=== PATIENT | male | born 1955 | race Caucasian/White ===

== ENCOUNTER 2017-03-09 21:33 | Inpatient (IN) ==
[2017-03-09] MEDS ORDERED: ONDANSETRON 4 MG/2 ML VIAL IV STA (21:52)
[2017-03-09] MEDS ORDERED: HYDROmorphone 2 MG/1 ML VIAL IV STA (21:52)
[2017-03-09] MEDS ORDERED: HYDROmorphone 2 MG/1 ML VIAL ONE (22:05)
[2017-03-09] MEDS ORDERED: ONDANSETRON 4 MG/2 ML VIAL ONE (22:05)
[2017-03-09] MEDS ORDERED: ONDANSETRON 4 MG/2 ML VIAL IV PRN (22:43)
[2017-03-09 22:59] LABS: Basophils # 0.1 10*3/uL (0.0-0.2); Basophils % 0.4 % (0.0-0.8); Eosinophils # 0.1 10*3/uL (0.0-0.87); Eosinophils % 0.7 % (0.00-10.9); Hematocrit 54.6 VOL% (42.0-52.0); Immature Granulocytes % 0.5 %; Immature Granulocytes Absolute 0.07 #; Lymphocytes # 1.9 10*3/uL (1.4-4.0); Lymphocytes % 14.2 % (21.2-54.2); Mean Corpuscular HGB Conc 34.8 GM/DL (32-36); Mean Corpuscular Hemoglobin 33 PG (27-34); Mean Platelet Volume 10.2 FL (9.6-12.0); Monocytes # 0.6 10*3/uL (0.11-0.8); Monocytes % 4.8 % (1.7-12.7); Neutrophils # 10.5 10*3/uL (1.4-7.4); Neutrophils % 79.4 % (38.7-73.9); Platelet Count 254 T/CUMM (130-400); Red Blood Count 5.75 MC/CUMM (3.8-5.5); Red Cell Distribution Width 12.2 % (9.3-17.3); White Blood Count 13.2 T/CUMM (4-12)
[2017-03-09 23:21] LABS: Calcium 9.1 MG/DL (8.5-10.1); Osmolality,Calculated 275.4 MOS/KG (273-304); Potassium 3.8 MMOL/L (3.5-5.1)
[2017-03-09] MEDS: HYDROmorphone 2 MG/1 ML VIAL IV PRN (23:21)
[2017-03-10] MEDS: DEXTROSE 5% NACL 0.45% 1,000 ML IV SCH ×2 (00:54→15:36)
[2017-03-10] MEDS: HYDROmorphone 2 MG/1 ML VIAL IV PRN ×4 (02:39→20:34)
[2017-03-10 08:10] LABS: Apearance,Urine CLEAR (Clear); Bilirubin,Urine Negative (Negative); Blood, Urine Negative (Negative); Glucose,Urine (UA) Negative (Negative); Ketones,Urine 5 mg/dL (Negative); Mucus,Urine Occasional /LPF (Occasional); Nitrite,Urine Negative (Negative); Protein,Urine Negative; RBC,Urine <1 /HPF (0-4); Urine Color Yellow (Yellow); Urine Specific Gravity 1.009 (1.001-1.035); Urine Urobilinogen < 2.0 EU/DL (0.2-1.0); WBC,Urine 1 /HPF (0-6)
[2017-03-10 08:15] LABS: Barbiturates Screen,Urine Negative (Negative); Benzodiazepines Screen,Urine Negative (Negative); Cannabinoid Screen,Urine Negative (Negative); Opiate Screen,Urine Positive (Negative); Phencyclidine Screen,Urine Negative (Negative)
[2017-03-10] MEDS ORDERED: ceFAZolin 1,000 MG in SYRINGE 1 EACH IV ONE (09:00)
[2017-03-10] MEDS ORDERED: LORazepam 1 MG TABLET PO PRN (09:52)
[2017-03-10] MEDS ORDERED: ROPIVACAINE 0.5% 30 ML VIAL ONE (11:38)
[2017-03-10] MEDS ORDERED: PROPOFOL 200 MG/20 ML VIAL IV ONE (12:04)
[2017-03-10] MEDS ORDERED: KETOROLAC 30 MG/1 ML VIAL ONE (12:05)
[2017-03-10] MEDS ORDERED: ACETAMINOPHEN 1,000 MG/100 ML VIAL IV ONE (12:05)
[2017-03-10] MEDS ORDERED: fentaNYL 100 MCG/2 ML VIAL ONE (12:05)
[2017-03-10] MEDS ORDERED: ONDANSETRON 4 MG/2 ML VIAL ONE (12:05)
[2017-03-10] MEDS ORDERED: MIDAZOLAM 2 MG/2 ML VIAL ONE (12:05)
[2017-03-11] MEDS: DEXTROSE 5% NACL 0.45% 1,000 ML IV SCH ×2 (01:01→06:21)
[2017-03-11] MEDS: ASPIRIN 325 MG TABLET PO SCH ×2 (07:23→08:29)
[2017-03-11] MEDS: MAGNESIUM HYDROXIDE SUSP 30 ML UDCUP PO PRN ×2 (07:23→17:40)
[2017-03-11] MEDS: HYDROmorphone 2 MG/1 ML VIAL IV PRN ×2 (09:30→15:20)
[2017-03-12 07:55] VITALS: BP 143/80
[2017-03-12] MEDS: ASPIRIN 325 MG TABLET PO SCH (09:40)
== END 2017-03-12 10:25 | disposition home or self-care (01) | DRG 313 ==
LOC: EDUNIT# → EDBD → N.ED 21:33 → N.EDINP 22:43 → N.3E 23:35
PROVIDERS: ADMIT Orthopaedic Surgery; ATTEND Orthopaedic Surgery